=== PATIENT | female | born 1950 | race Caucasian/White ===

== ENCOUNTER 2017-04-15 12:22 | Inpatient (IN) | payer MEDICAID ==
[~2017-04-15] VITALS: Ht 162.5 cm; Wt 78.9 kg
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
[2017-04-15 12:34] VITALS: BP 154/66
[2017-04-15 12:57] LABS: BASO % 0.6 % (0.0-1.0); EOS # 0.1 10*3/uL (0.0-0.4); EOS % 1.5 % (1.0-4.0); HEMATOCRIT 35.8 % (37.0-47.0); HEMOGLOBIN 12.2 g/dl (12.0-16.0); LYMPH # 1.5 10*3/uL (1.3-4.4); LYMPH % 22.6 % (27.0-41.0); MEAN CELL VOLUME 93.2 fl (81.0-99.0); MEAN CORPUSCULAR HGB 31.8 pg (27.0-31.0); MEAN CORPUSCULAR HGB CONC 34.1 g/dl (33.0-37.0); MEAN PLATELET VOLUME 9.4 fl (9.6-12.3); MONO # 0.5 10*3/uL (0.1-1.0); MONO % 7.9 % (3.0-9.0); NEUT # 4.3 10*3/uL (2.3-7.9); NEUT % 67.1 % (47.0-73.0); PLATELET COUNT AUTOMATED 249 10*3/uL (130-400); RED BLOOD COUNT 3.84 10*6/uL (4.10-5.10); WHITE BLOOD COUNT 6.5 10*3/uL (4.8-10.8)
[2017-04-15] MEDS ORDERED: METOPROLOL25 MG PO (13:04)
[2017-04-15] MEDS ORDERED: CAPTOPRIL25 MG PO (13:04)
[2017-04-15] MEDS ORDERED: HYDROCHLOROTHIA25 M1 PO (13:06)
[2017-04-15] MEDS ORDERED: ATIVAN1 MG PO (13:06)
[2017-04-15] MEDS ORDERED: VISTARIL25 MG PO (13:06)
[2017-04-15] MEDS ORDERED: ZYPREXA5 M1 PO (13:07)
[2017-04-15] MEDS ORDERED: CYCLOBENZAPRINE10 MG PO (13:07)
[2017-04-15 13:08] LABS: PROTHROMBIN TIME 10.2 SECONDS (9.0-12.4)
[2017-04-15] MEDS ORDERED: SENNA8.6 MG PO (13:08)
[2017-04-15] MEDS ORDERED: CITALOPRAM20 MG PO (13:10)
[2017-04-15] MEDS ORDERED: XARELTO15 M1 PO (13:10)
[2017-04-15 13:15] LABS: ALBUMIN 3.7 gm/dl (3.1-4.5); ALKALINE PHOSPHATASE 63 U/L (45-117); BILIRUBIN, TOTAL 0.4 mg/dl (0.2-1.0); BUN 9 mg/dl (7-24); CARBON DIOXIDE 24 mmol/L (21-32); CHLORIDE 109 mmol/L (98-107); EST GLOM FILT AFRICAN AMERICAN > 60 ml/min; GLUCOSE 106 mg/dL (65-99); MAGNESIUM 2.1 mg/dL (1.5-2.1); POTASSIUM 3.8 mmol/L (3.5-5.1); SGOT/AST 8 IU/L (3-35); SGPT/ALT 17 U/L (12-78); SODIUM 146 mmol/L (136-145); TOTAL PROTEIN 7.2 gm/dL (6.4-8.2)
[2017-04-15 13:17] LABS: TROPONIN I < 0.015 ng/ml (<0.045)
[2017-04-15 14:40] VITALS: BP 147/80
[2017-04-15 16:00] VITALS: BP 119/77
[2017-04-15 18:14] LABS: CPK 42 U/L (26-192)
[2017-04-15 18:20] LABS: CKMB < 0.5 ng/ml (0.5-3.6)
[2017-04-15 20:00] VITALS: BP 119/73
[2017-04-16] VITALS: BP 131/77
[2017-04-16 00:54] LABS: CPK 43 U/L (26-192)
[2017-04-16 00:55] LABS: CKMB < 0.5 ng/ml (0.5-3.6)
[2017-04-16 06:13] LABS: BASO % 0.7 % (0.0-1.0); EOS # 0.2 10*3/uL (0.0-0.4); EOS % 3.3 % (1.0-4.0); HEMATOCRIT 32.8 % (37.0-47.0); HEMOGLOBIN 11.1 g/dl (12.0-16.0); LYMPH # 1.6 10*3/uL (1.3-4.4); LYMPH % 27.7 % (27.0-41.0); MEAN CORPUSCULAR HGB 31.8 pg (27.0-31.0); MEAN CORPUSCULAR HGB CONC 33.8 g/dl (33.0-37.0); MEAN PLATELET VOLUME 9.7 fl (9.6-12.3); MONO # 0.5 10*3/uL (0.1-1.0); MONO % 8.8 % (3.0-9.0); NEUT # 3.4 10*3/uL (2.3-7.9); NEUT % 59.3 % (47.0-73.0); PLATELET COUNT AUTOMATED 219 10*3/uL (130-400); RED BLOOD COUNT 3.49 10*6/uL (4.10-5.10); RED CELL DISTRI WIDTH 11.9 % (0-14.5); WHITE BLOOD COUNT 5.8 10*3/uL (4.8-10.8)
[2017-04-16 06:26] LABS: CPK 36 U/L (26-192)
[2017-04-16 06:43] LABS: CKMB < 0.5 ng/ml (0.5-3.6)
[2017-04-16 06:44] LABS: ALBUMIN 3.3 gm/dl (3.1-4.5); ALKALINE PHOSPHATASE 57 U/L (45-117); BILIRUBIN, TOTAL 0.4 mg/dl (0.2-1.0); BUN 9 mg/dl (7-24); CARBON DIOXIDE 27 mmol/L (21-32); CHLORIDE 108 mmol/L (98-107); CHOLESTEROL 182 mg/dL (<200); EST GLOM FILT AFRICAN AMERICAN > 60 ml/min; GLUCOSE 102 mg/dL (65-99); HDL CHOLESTEROL 44 mg/dl (40-60); LDL CHOLESTEROL 110 mg/dL (9-159); MAGNESIUM 2.2 mg/dL (1.5-2.1); POTASSIUM 3.8 mmol/L (3.5-5.1); SGOT/AST 9 IU/L (3-35); SGPT/ALT 16 U/L (12-78); SODIUM 144 mmol/L (136-145); TOTAL PROTEIN 6.4 gm/dL (6.4-8.2); TRIGLYCERIDES 138 mg/dl (<150); VLDL CHOLESTEROL 28 mg/dL (6-40)
[2017-04-16 06:49] LABS: THYROID STIM HORMONE (HS) 0.733 uIU/ml (0.358-4.75)
[2017-04-16 07:19] LABS: HEMOGLOBIN A1c 6.3 % (4.8-5.6)
[2017-04-16 07:29] LABS: FOLIC ACID 16.38 ng/mL (>5.38); VITAMIN D, 25-HYDROXY 13.2 ng/mL (30-100)
[2017-04-16 08:00] VITALS: BP 145/87
[2017-04-16 12:00] VITALS: BP 136/86
[2017-04-16 16:00] VITALS: BP 136/79
[2017-04-16 17:39] LABS: URINE AMPHETAMINES < 1000 (1000ng/ml); URINE BARBITURATES < 200 (200ng/ml); URINE COCAINE < 300 (300ng/ml)
[2017-04-16 20:00] VITALS: BP 136/79; BP 142/76
[2017-04-17] VITALS: BP 154/82
[2017-04-17 08:00] VITALS: BP 142/88
[2017-04-17 12:00] VITALS: BP 144/89
[2017-04-17 16:00] VITALS: BP 152/92
[2017-04-17] MEDS ORDERED: PANTOPRAZOLE SO40 MG PO (17:17)
[2017-04-17] MEDS ORDERED: D-1000 185 MG-11 TAB PO (17:17)
== END 2017-04-17 20:13 | disposition home or self-care (01) | DRG 880 ==
LOC: ED 12:22 → 4E 13:38 → EDHOLD 13:38 → 4E 13:48
PROVIDERS: Family Medicine; Internal Medicine; Nurse Practitioner Family
DX: F41.9 Anxiety disorder, unspecified (principal); E87.0 Hyperosmolality and hypernatremia; E44.0 Moderate protein-calorie malnutrition; F33.9 Major depressive disorder, recurrent, unspecified; I10 Essential (primary) hypertension; E55.9 Vitamin D deficiency, unspecified; E83.41 Hypermagnesemia; F20.9 Schizophrenia, unspecified; R03.0 Elevated blood-pressure reading, without diagnosis of hypertension; Z88.0 Allergy status to penicillin; Z88.2 Allergy status to sulfonamides; Z88.8 Allergy status to other drugs, medicaments and biological substances; Z82.49 Family history of ischemic heart disease and other diseases of the circulatory system; Z83.3 Family history of diabetes mellitus; Z84.89 Family history of other specified conditions; Z68.29 Body mass index [BMI] 29.0-29.9, adult

== ENCOUNTER 2017-07-18 20:27 | Inpatient (IN) | payer MEDICARE, MEDICAID ==
[~2017-07-18] VITALS: Ht 167.6 cm; Wt 86.2 kg
--- NOTE | ~2017-07-18 | DS ---
[place], [place] DISCHARGE SUMMARY NAME: SUKHWINDER MIRELES [facility] #: [id number] UNIT #: [id number] ROOM: 310 DOCTOR: GILBERTO DAIGLE MD BIRTHDATE: [birth year] DOS: 07/26/2017 CHIEF COMPLAINT: "I don't feel well. The pain is getting to me." HISTORY OF PRESENT ILLNESS: This is a 67-year-old white female with a longstanding history of schizoaffective disorder who presented to the Emergency Room at [facility] with multiple somatic complaints. She had been in and out of this and other local ERs complaining first chest pain with a negative workup and then subsequently with abdominal pain with a similar negative workup. She presents now having been noncompliant with her psychotropics for several weeks and reports that she is not sleeping or eating well. A friend who accompanied her to the Emergency Room was concerned that she is decompensating and slipping into a depression as well as having an increase in her psychotic symptoms. The friend reported that in the past when she has exhibited similar behaviors. She required hospitalization with readjustment of her medications to prevent her from getting deeper into depression and psychosis. She was admitted now to rule out organic factors, to stabilize on medication, ultimately returning to the least restrictive environment when psychiatrically stable. PAST MEDICAL HISTORY: Remarkable for a long history of schizoaffective disorder, hypertension, hyperlipidemia, vitamin D deficiency. She lists multiple drug allergies including LITHIUM, PENICILLIN, SULFA, PROZAC, ZOLOFT, DEPAKOTE, ALEVE, ASPIRIN and ALL ANTIMANIC AGENTS. SUMMARY OF HOSPITAL COURSE: The patient was admitted to the unit where her Lexapro was discontinued in lieu of Remeron 15 mg at bedtime. Navane 5 mg twice daily was utilized as an antipsychotic; however, after several days of the Navane, she complained of severe akathisia and tremors, so the Navane was discontinued and Vraylar 1.5 mg was added at bedtime. Remeron remained at 15 mg at bedtime with adequate results as far as improving sleep and appetite. Ativan was added at a dose of 0.5 mg 3 times daily and she utilized both Ativan and Vistaril p.r.n. throughout the day when the anxiety became too much for her. Ultimately, the Vraylar was increased to its maximum dose during this stay of 3 mg a day. The patient continued to exhibits somatic symptoms and did tend to be anxious and required a great deal of redirection. On the day of discharge, I had talked to her at length about participating in the [place] IOP program and she was uncertain if she wanted to follow through with this. Overall, she voiced positive improvement with the medication and denied significant side effects. She was discharged then on 07/26 to return home in [place]. MENTAL STATUS AT DISCHARGE: The patient is alert and oriented. Mood does seem to be trending towards euthymia. Affect is more appropriate. There are no symptoms of candi or hypomania. There are no overt auditory or visual hallucinations noted. Short, intermediate, and long-term memory are intact. FINAL DIAGNOSIS: Schizoaffective disorder. PLAN: All of her prescriptions have been E-scribed to [facility] in [place] except for the Ativan, which will be printed and sent with her upon discharge. [place], [place] DISCHARGE SUMMARY NAME: [facility]WINDER MIRELES [id number] UN[facility] #: [id number] ROOM: 310 DOCTOR: GILBERTO DAIGLE MD BIRTHDATE: [birth year] GILBERTO DAIGLE MD CM:HERMINIAARG 08 7 GILBERTO DAIGLE MD 07/26/17957 interface
--- NOTE | ~2017-07-18 | WRIGHTHP ---
[place], [place] PATIENT HISTORY AND PHYSICAL EXAM NAME: SUKHWINDER MIRELES [id number] UNIT #: [id number] ROOM: 310 DOCTOR: GILBERTO DAIGLE MD BIRTHDATE: [birth year] DOS: 07/19/2017 CHIEF COMPLAINT: "I don't feel well. This pain is getting to me." HISTORY OF PRESENT ILLNESS: This is a 67-year-old white female with a longstanding history of schizoaffective disorder who presented to the Emergency Room at [facility] with multiple somatic complaints. She has been in and out of this ER and local ER's complaining first of chest pain with a negative workup and then subsequently with abdominal pain with a similar negative workup. She presents now stating that she has been noncompliant with her psychotropics for several weeks now, has not been sleeping well or eating well. A friend, who accompanied her to the Emergency Room, was concerned that she is decompensating greatly and is slipping into a depression as well as psychotic symptoms. The friend reported that in the past when similar behaviors were surfaced, she required hospitalization and readjustment with her medications. She is admitted now to rule out organic factors, to stabilize on medication with the ultimate plan to return to at least restrictive environment when psychiatrically stable. PAST MEDICAL HISTORY: Remarkable for the long history of schizoaffective disorder, hypertension, hyperlipidemia, vitamin D deficiency. ALLERGIES: She also lists multiple drug allergies including LITHIUM, PENICILLIN, SULFA, PROZAC, ZOLOFT, DEPAKOTE, ALEVE, ASPIRIN and ALL ANTIMANIC AGENTS. MENTAL STATUS: She is alert and oriented. She does seem to be somewhat depressed. She is very somatically fixated. She endorses multiple neurovegetative symptoms. Her somatization borders on delusional quality and it is very difficult to support and redirect her. Memory for the most part is intact. DIAGNOSIS: Schizoaffective disorder. PLAN: I did discuss with her options regarding medications, and she reported that she would prefer utilizing older medications that have been available for sometime. Along this line, I will start Navane 5 mg twice daily as an antipsychotic. I will maintain her on Remeron 15 mg at bedtime. We will engage her in individual and han milieu activity with the ultimate plan to discharge to the least restrictive environment when stable. [place], [place] PATIENT HISTORY AND PHYSICAL EXAM NAME: SUKHWINDER MIRELES UNIT #: [id number] ROOM: 310 DOCTOR: GILBERTO DAIGLE MD BIRTHDATE: [birth year] GILBERTO DAIGLE MD CM:HISPHYS:PATIENT HISTORY AND PHYSICAL EXAMINATION 2 9 GILBERTO DAIGLE MD 07/19/17929 interface
--- NOTE | ~2017-07-18 | PR ---
[place], [place] PROGRESS NOTE NAME: SUKHWINDER MIRELES UNIT #: [id number] ROOM: 310 DOCTOR: GILBERTO DAIGLE MD BIRTHDATE: [birth year] DOS: 07/24/2017 CHIEF COMPLAINT: "I slept better, thank you. I feel a little better." SUMMARY OF THE VISIT: The patient was interviewed as she was resting quietly in bed. She awoke easily and sat at the edge of her bed. She reports that she did sleep better and feels better with the Vraylar in place rather than the Navane. She no longer has the tremors or the jittery feeling inside her. She notes no side effects with the Vraylar at this point in time and she actually smiled this morning and was more engaging. She did allow me to increase the dose tonight stating that she is feeling better with this and is hopeful that we finally found the right medication. MENTAL STATUS: She is alert and oriented to person, place and time. Mood does seem to be trending towards euthymia and affect is much more appropriate. There is no symptom suggestive of hypomania or candi. There are no acute auditory or visual hallucinations. No delusions were voiced. No paranoia seems present. Memory seems fully intact. PLAN: I will go ahead and increase the Vraylar from 1.5 mg at bedtime to 3 mg at bedtime and monitor for risk and benefit. Engage in individual and han milieu activity with the ultimate plan to return home when psychiatrically stable. GILBERTO DAIGLE MD CM:PNTRANS [phone] GILBERTO DAIGLE MD 07/24/17 1120 interface
--- NOTE | ~2017-07-18 | EKG ---
[place], [place] ELECTROCARDIOGRAM REPORT NAME: SUKHWINDER MIRELES UNIT #: [id number] ROOM: 310 DOCTOR: SRAVAN SHORT MD BIRTHDATE: [birth year] DOS: 07/18/2017 TIME: 2036 hours. Normal sinus rhythm at 96 beats per minute. The tracing is within normal limits. No previous tracing is available for comparison. SRAVAN SHORT MD Kaya Lucio NP CM:EKGRPT:ELECTROCARDIOGRAM REPORT [id number] SRAVAN SHORT MD
--- NOTE | ~2017-07-18 | PR ---
[place], [place] PROGRESS NOTE NAME: [facility]KHWINDER MIRELES [id number] UN[facility] #: [id number] ROOM: 310 DOCTOR: GILBERTO DAIGLE MD BIRTHDATE: [birth year] DOS: 07/25/2017 CHIEF COMPLAINT: "I slept better, but I feel a little tired this morning." SUMMARY OF THE VISIT: The patient was interviewed in the group therapy room. She did report that she slept better, but stated that she initiated sleep late because she stayed up too late. She woke up this morning feeling a little bit tired, but overall, feels much better on the Vraylar than she did on the Navane. The tremors that she had noted that were present with the Navane have dissipated and she is not noticing any side effects from the Vraylar. She herself endorses feeling better with this combination of medications and overall is improving enough to be able to start finalizing discharge plans. MENTAL STATUS: She is alert and oriented. Mood does seem to be strongly trending towards euthymia. Affect is much more appropriate. There are no symptoms suggestive of hypomania or candi. There are no overt auditory or visual hallucinations. No delusions are present. No paranoia is present. Short, intermediate and nursing home memory are fully intact. PLAN: At the present time, I will maintain her current psychotropic regimen, so that she may further adjust to the benefits and side effects of these medicines. We will continue to engage her in individual and han milieu activity. I did discuss with her the possibility of engaging in the [facility] post-discharge and will have Seismology Technical Officer further discuss this with her as a post-discharge option. We will plan to discharge when psychiatrically stable. GILBERTO DAIGLE MD CM:PNTRANS 0935 1507 GILBERTO DAIGLE MD 07/25/17 1506 interface
--- NOTE | ~2017-07-18 | PR ---
[place], [place] PROGRESS NOTE [facility]LES [id number] #: [id number] ROOM: 310 DOCTOR: GILBERTO DAIGLE MD BIRTHDATE: [birth year] DOS: 07/23/2017 CHIEF COMPLAINT: "I am so anxious, I am so depressed, nothing is working." SUMMARY OF THE VISIT: The patient was interviewed in the group therapy room. She reported to me that she feels overwhelmed. She is very stressed out. She still feels depressed. She is still feeling anxious and having panic attacks now, stating that she feels worse now than when she first came in. She feels that the Navane is causing her to have too many side effects and does not want to take it any longer. MENTAL STATUS: She is alert and oriented. Mood does seem to be depressed with anxious overtones. There does seem to be some mood lability noted as well. There are no overt auditory or visual hallucinations. No delusions, no paranoia. Memory seems intact. PLAN: I will go ahead and discontinue the Navane in lieu of Vraylar 1.5 mg at bedtime. I will order Ativan 0.5 mg t.i.d. straight to decrease her anxiety and attempt to stabilize her mood, engage in individual and han milieu activity, returning home when stable. GILBERTO DAIGLE MD CM:PNTRANS [phone] GILBERTO DAIGLE MD 07/23/17 1153 interface
[~2017-07-18 20:27] MED LIST: ATIVAN1 MG PO; CAPTOPRIL25 MG PO; CITALOPRAM20 MG PO; CYCLOBENZAPRINE10 MG PO; D-1000 185 MG-11 TAB PO; HYDROCHLOROTHIA25 M1 PO; METOPROLOL25 MG PO; PANTOPRAZOLE SO40 MG PO; SENNA8.6 MG PO; VISTARIL25 MG PO; XARELTO15 M1 PO; ZYPREXA5 M1 PO
[2017-07-18 20:53] LABS: BASO # 0.1 10*3/uL (0.0-0.1); BASO % 0.6 % (0.0-1.0); EOS # 0.1 10*3/uL (0.0-0.4); EOS % 1.1 % (1.0-4.0); HEMATOCRIT 36.3 % (37.0-47.0); HEMOGLOBIN 12.2 g/dl (12.0-16.0); MEAN CELL VOLUME 93.1 fl (81.0-99.0); MEAN CORPUSCULAR HGB 31.3 pg (27.0-31.0); MEAN CORPUSCULAR HGB CONC 33.6 g/dl (33.0-37.0); MEAN PLATELET VOLUME 10.1 fl (9.6-12.3); MONO # 0.6 10*3/uL (0.1-1.0); MONO % 7.7 % (3.0-9.0); NEUT # 5.4 10*3/uL (2.3-7.9); NEUT % 66.4 % (47.0-73.0); PLATELET COUNT AUTOMATED 357 10*3/uL (130-400); RED CELL DISTRI WIDTH 11.8 % (0-14.5); WHITE BLOOD COUNT 8.2 10*3/uL (4.8-10.8)
[2017-07-18 21:17] LABS: ALBUMIN 3.6 gm/dl (3.1-4.5); ALKALINE PHOSPHATASE 69 U/L (45-117); BUN 7 mg/dl (7-24); CHLORIDE 108 mmol/L (98-107); CREATININE 0.85 mg/dL (0.55-1.02); POTASSIUM 4.4 mmol/L (3.5-5.1); SGOT/AST 27 IU/L (3-35); SGPT/ALT 22 U/L (12-78); SODIUM 142 mmol/L (136-145); TOTAL PROTEIN 7.2 gm/dL (6.4-8.2)
[2017-07-18 21:19] LABS: TROPONIN I < 0.015 ng/ml (<0.045)
[2017-07-18 21:20] VITALS: BP 174/92
--- NOTE | 2017-07-18 21:30 | NUR ---
PT REFUSED MEDICATION
[2017-07-18 21:56] VITALS: BP 195/101
--- NOTE | 2017-07-18 21:56 | NUR ---
PT STATES SHE FEELS RELIEF AFTER GI COCKTAIL
[2017-07-18 22:20] LABS: BILIRUBIN NEGATIVE (NEGATIVE); BLOOD 1+ (NEGATIVE); CLARITY CLEAR (CLEAR); COLOR YELLOW (YELLOW); GLUCOSE NEGATIVE (NEGATIVE); KETONE NEGATIVE (NEGATIVE); LEUKO ESTERASE NEGATIVE (NEGATIVE); NITRITE NEGATIVE (NEGATIVE); UROBILINOGEN 0.2 E.U./dl (0.2-1.0)
[2017-07-18 22:25] LABS: ACETAMINOPHEN (TYLENOL) < 2.0 ug/ml (10-30); ETHYL ALCOHOL < 3.0 mg/dl (<3)
[2017-07-18 22:28] LABS: BACTERIA TRACE
[2017-07-18 22:31] LABS: URINE AMPHETAMINES < 1000 (1000ng/ml); URINE BARBITURATES < 200 (200ng/ml); URINE BENZODIAZEPINES < 200 (200ng/ml); URINE CANNABINOIDS (THC) < 50 (50ng/ml); URINE COCAINE < 300 (300ng/ml); URINE METHADONE < 300 (300ng/ml); URINE OPIATES < 300 (300ng/ml)
[2017-07-18 22:32] LABS: URINE PHENCYCLIDINE < 25 (25ng/ml)
[2017-07-18 23:07] VITALS: BP 194/103
[2017-07-18 23:45] VITALS: BP 144/79
--- NOTE | 2017-07-18 23:45 | NUR ---
SUKHWINDER MIRELES a 67 year old F admitted via wheel chair from the EMERGENCY ROOM as a voluntary admission. Arrived on unit at 2345. ALLERGIES: BENZOCAINE, LITHIUM, PCN, SULFAMETHOXAZOLE, SULFONAMIDE, LATEX, PROZAC, ZOLOFT, DEPAKOTE, ALEVE, ASA, ANY METAL BASED OR ASA MEDS, ANTIMANIC AGENTS. Vital signs are: 97.3-75-16 144/79. The client signed the following forms with stated understanding: Clothing List, Consent to Voluntary Admission and Hospitalization, Consent and Release Forms/Receipt of Rights, Acknowledgement of Advance Directive Information, Behavioral Health Consent Form, and Informed Consent of Medications. [facility] A search was conducted and hazardous articles were removed. Client was oriented to the unit. JOEY GR
[2017-07-19] VITALS: BP 144/79
[2017-07-19] MEDS ORDERED: LEXAPRO20 MG PO (00:32)
--- NOTE | 2017-07-19 01:16 | NUR ---
CALLED HOSPITALIST NUMBER [phone], SPOKE TO , INFORMED HIM OF BEING CONSULTED FOR MEDICAL MANAGEMENT AND THAT THE MED REC IS COMPLETED, STATED TO PLACE CONSULT UNDER . NO OTHER ORDERS RECIEVED.
--- NOTE | 2017-07-19 02:39 | NUR ---
RECIEVED PRN TYLENOL 650MG REQUESTED FOR C/O ABDOMINAL PAIN WITH A RATING OF 8/10, PATIENT STATES IT IS A "DULL PAIN". LAST BM PER PATIENT WAS 07/18/17. BOWEL SOUNDS X4, ABDOMEN SOFT, NON DISTENDED. NO OTHER PHYSICAL COMPLAINTS VOICED. NO SIGNS OR SYMPTOMS OF DISTRESS NOTED.
--- NOTE | 2017-07-19 04:44 | NUR ---
PATIENT RECIEVED PRN MAALOX 30ML REQUESTED FOR "STOMACH PAIN" WITH A CONTINUED RATING OF 8/10. PRN TYLENOL RECIEVED AT 0239 NOT EFFECTIVE AT THIS TIME. NO OTHER PHYSICAL COMPLAINTS VOICED. NO SIGNS OR SYMPTOMS OF DISTRESS NOTED.
[2017-07-19 05:21] VITALS: BP 186/96
--- NOTE | 2017-07-19 05:21 | NUR ---
CALLED RESIDENT NUMBER [phone], SPOKE WITH DR. HIDALGO, INFORMED HIM OF PATIENTS C/O ABDOMINAL PAIN THAT HAS CONTINUED FROM OUR ER. ALSO UPDATED HIM ON PRN MEDICATIONS RECIEVED THIS SHIFT ARE NOT EFFECTIVE AT THIS TIME. ALSO THAT PATIENT REQUESTED FOR HER BP TO BE CHECK AND IT WAS 186/96 AND THAT PATIENT STATED "I DID NOT TAKE MY BP MEDICATIONS YESTERDAY". DR. HIDALGO STATED TO CONTINUE HER CAPTOPRIL 25MG BID, AND ALSO 1X DOSE OF NORCO 5/325. NO OTHER ORDERS RECIEVED AT THIS TIME.
--- NOTE | 2017-07-19 05:34 | NUR ---
ON UNIT TO SEE PATIENT AT THIS TIME. UPDATE PROVIDED.
--- NOTE | 2017-07-19 07:00 | NUR ---
PATIENT OBSERVED ON Q 15 MIN SAFETY CHECKS TO HAVE TO HAVE SLEPT APPROX 0 HOURS THROUGHOUT THE NIGHT WITH MULTIPLE AWAKENINGS TO USE THE CALL LIGHT FOR VARIOUS WANTS AND DEMANDS. NOT EASILY REDIRECTED BY STAFF, ASSISTANCE AND EMOTIONAL SUPPORT PROVIDED. REFUSED AM BLOOD DRAWS AT THIS TIME AFTER EDUCATION, LAB TO RETURN AT 0900 TO RETRY. NO SIGNS OR SYMPTOMS OF DISTRESS NOTED.
--- NOTE | 2017-07-19 08:02 | NUR ---
24 HOUR CHART CHECK COMPLETED.
[2017-07-19 09:11] VITALS: BP 141/96
[2017-07-19 09:30] LABS: CHOLESTEROL 213 mg/dL (<200); HDL CHOLESTEROL 46 mg/dl (40-60); LDL CHOLESTEROL 136 mg/dL (9-159); TRIGLYCERIDES 157 mg/dl (<150); VLDL CHOLESTEROL 31 mg/dL (6-40)
--- NOTE | 2017-07-19 10:29 | NUR ---
PATIENT CONTINUES TO C/O SOB AND MIDSTERNAL CHEST PAIN. PT WAS IN GROUP THEN REMOVED SELF AND IS NOW LAYING IN BED. VITALS STABLE WITH HRR. GAIT IS SLOW AND STEADY. SKIN IS WARM AND DRY. NO OBVIOUS VISIBLE RESPIRATORY DISTRESS NOTED. PATIENT CONTINUES TO LAY IN BED TURNING DOCUMENTATION CLERK LIGHT FREQUENTLY AND REQUESTING TO "TALK." NOTIFIED WITH NNO. STATES TO CONTINUE TO MONITOR PATIENT NEEDED.
[2017-07-19 10:30] LABS: VITAMIN D, 25-HYDROXY 14.8 ng/mL (30-100)
--- NOTE | 2017-07-19 10:35 | NUR ---
PATIENT CAME BACK TO GROUP ROOM FOR APPROXIMATELY 2 MINUTES THEN RETURNED TO HER ROOM. CALLED AT THIS TIME AND STATES HE IS ENTERING NEW ORDERS.
--- NOTE | 2017-07-19 12:02 | NUR ---
AT BEDSIDE TO ASSESS PATIENT. MADE AWARE PT REFUSED GI COCTAIL AND THAT PT STATES "I'M ALLERGIC TO ALL THAT." PT REQUESTING "LIQUID ATIVAN THROUGH THIS IV." IV REMOVED PER , ONE TO OPNE COMPLETED R/T ANXIETY WITH MINIMAL EFFECT. PT STATES "NOTHING WORKS." LAYING IN BED WITH EYES CLOSED AT THIS TIME. RESPIRATIONS EASY AND EVEN. NO ACUTE DISTRESS NOTED.
--- NOTE | 2017-07-19 12:37 | NUR ---
PHYSICAL THERAPY PAtient evaluated on three, full evaluation to follow. PAtient (I) with mobility, d/c PT after evaluation. Thank you for this referral. Mariana Umana,PT
--- NOTE | 2017-07-19 12:49 | NUR ---
Reminiscing Patient did attend group this morning but within 10 mins patient stated she needed to go back to her room due to chest pain not going away. Questioned patient if she needed a nurse, if this just started etc. Patient stated did not need a nurse and its been this way for months. AT check with staff about this situation and they are aware and to let her go back to her room
--- NOTE | 2017-07-19 12:52 | NUR ---
Occupational Therapy evaluation completed [facility] with full eval to follow. Precautions include 3N, anxiety. Recommend return to apartment w/ boyfriend and at plof. No further OT indicated at this time. Thank you for this referral. Yoselin Perez OTR/L
--- NOTE | 2017-07-19 15:23 | NUR ---
PRN TYLENOL GIVEN PER PT REQUEST FOR 10/10 MID STERNAL CHEST PAIN AT 1448 . PRN TYLENOL EFFECTIVE AT THIS TIME, PT RESTING IN BED WITH EYES CLOSED. RESPIRATIONS EASY AND EVEN. NO ACUTE DISTRESS NOTED.
--- NOTE | 2017-07-19 15:38 | NUR ---
Painting/Socializing Patient did attend afternoon group as well as participate for 10 mins or so. Patient began painting but when asked where she was going when she got up to leave patient stated for her tylenol but would get it later.Patient then got up to leave a few minutes later to get tylenol and went to her room. Patient then came back and said she did all she could do and left again
--- NOTE | 2017-07-19 16:30 | NUR ---
PT REQUESTED HER BP TAKEN AT THIS TIME. BP 192/102, HR 95. NOTIFIED, STATES TO GIVE 1800 LISINOPRIL EARLY.
--- NOTE | 2017-07-19 16:32 | NUR ---
PT C/O FEELING LIKE HER BP IS ELEVATED. VITALS TAKEN AND FOLLOWS: BP 192/100, HR 95, SPO2 98% RA, RR 20. NOTIFIED AND STATES TO GIVE LISINOPRIL NOW AND RECHECK BP IN 1 HOUR.
--- NOTE | 2017-07-19 16:35 | NUR ---
LISINOPRIL GIVEN AT THIS TIME. PT LAYING IN BED AT THIS TIME C/O "NOT FEELING GOOD." RESPIRATIONS EASY AND EVEN. WILL CONTINUE TO MONITOR.
--- NOTE | 2017-07-19 16:52 | NUR ---
PT WAS TOO ANXIOUS AND WORRIED ABOUT CHEST PAIN TO CONCENTRATE TO COMPLETE PYSCHOSOCIAL ASSESSMENT.
--- NOTE | 2017-07-19 16:52 | NUR ---
PT IS ALERT AND ORIENTED X4. MAKES NEEDS AND WANTS KNOWN TO STAFF. MOOD IS ANXIOUS AND LABILE THIS SHIFT. MULTIPLE ONE ON ONE'S COMPLETED WITH PATIENT FROM MS, AT, AND RN'S WITH MINIMAL EFFECT FOR SHORT PERIODS OF TIMES. REMAINS PREOCCUPIED WITH MEDICATIONS AND SOMATIC COMPLAINTS. AND AND ALL AWARE OF PHYSICAL AND PSYCHOLOGICAL COMPLAINTS. DENIES ANY SI/HI. DENIES ANY HALLUCINATIONS AND NONE ARE NOTED. DISRUPTIVE AND INTRUSIVE BEHAVIORS NOTED THROUGHOUT THE DAY, REDIRECTION EFFECTIVE FOR ONLY SHORT PERIODS OF TIME. MEDICATION COMPLIANT WITHOUT DIFFICULTY. WILL CONTINUE Q15 MIN OBSERVATION CHECKS PER ORDERS. WILL CONTINUE TO ENCOURAGE PT TO ATTEND AND PARTICIPATE IN GROUP THERAPY.
--- NOTE | 2017-07-19 17:35 | NUR ---
BP 186/93, HR 86 AT THIS TIME. NOTIFIED, STATES TO GIVE PRN ATIVAN.
--- NOTE | 2017-07-19 17:43 | NUR ---
PRN ATIVAN GIVEN AT THIS TIME. WILL CONTINUE TO MONITOR.
--- NOTE | 2017-07-19 18:08 | NUR ---
APPETITE POOR THIS SHIFT, TAKING FLUIDS WELL.
--- NOTE | 2017-07-19 18:59 | NUR ---
MADE AWARE PT BP IS 177/86, HR 85 AND THAT PT IS SLEEPING AT THIS TIME. NEW V/O WRITTEN DOWN AND READ BACK, WITNESSED BY 2ND RN, GRANT AGUDELO.
[2017-07-19 20:00] VITALS: BP 178/86
--- NOTE | 2017-07-20 06:59 | NUR ---
PT SLEPT THOUGHOUT THE NIGHT 8 HOURS PLUS. PT BEGAN SHIFT VERY SUSPICIOUS, PREOCCUPIED WITH MEDICATION AND SOMATIC COMPLAINTS. MEDICATION COMPLIANT WITH MUCH COAXING. CONTINUE TO REORIENT AND REDIRECT, CONTINUE TO ALLOW PATIENT TO VOICE CONCERNS AND PROVIDE EMOTIONAL SUPPORT. REPORT BUILT WITH PT AWOKE LESS SUSPICIOUS OF STAFF. VOICING NO SOMATIC COMPLAINTS THIS AM
[2017-07-20 07:51] VITALS: BP 137/85
--- NOTE | 2017-07-20 09:27 | NUR ---
SW completed Psychosocial Assessment with Pt. Pt stays mostly at her Boyfriend's apartment but still has her own apartment. SW and Pt discussed a Partial Hsoptalization Program in [place]. Pt stated that she is not a mornig person. Sw stated that Pt could go a half a day in the afternoon. Pt deneen consider this.
--- NOTE | 2017-07-20 11:20 | NUR ---
NEGRITA ARREDONDO AT BEDSIDE TO ASSESS PT. NNO AT THIS TIME.
--- NOTE | 2017-07-20 11:23 | NUR ---
Painting,Decorating/Socializing This project was started yesterday in group and this patient did not stay for the entire group. Patient stayed the entire time for group this morning,working on her Dynamighty and socializing. Patient was very friendly and helpful to other patients and this staff person. During group there was no mention of pain of any kind.
--- NOTE | 2017-07-20 15:46 | NUR ---
Roxane Holder Patient did attend group and participated instead in positive thinking/Positive traits. Patient discussed her feelings and what she saw in herself. We also discussed coping skills and deep breathing exercises when there is anxiety.
[2017-07-20 20:00] VITALS: BP 150/88
--- NOTE | 2017-07-20 23:15 | NUR ---
PT VOICING MID STERNAL PRESSURE AND FEELING OF ANXIETY. MED CHANGES DISCUSSED WITH PT BP 150/88 MANUAL. PRN ATIVAN ANDMINISTERED PO
--- NOTE | 2017-07-21 00:05 | NUR ---
PT RESTING QUIETLY IN BED AT THIS TIME PRN ATIVAN EFFECTIVE
--- NOTE | 2017-07-21 04:44 | NUR ---
24 HR chart check completed.
--- NOTE | 2017-07-21 06:09 | NUR ---
PT SLEPT 6 HOURS UNINTURRUPTED THROUGHOUT THE NIGHT. PT CONTINUES WITH SOMATIC COMPLAINTS AND INCREASED ANXIETY. 1-1 PROVIDED AND DISCUSSED MED CHANGES AND COPING STRATEGIES. PT DEVELOPING IMPROVED REPORT WITH STAFF, DECREASED SOMATIC COMPLAINTS AND FIXATION ON MEDS THAN ON PREVIOUS SHIFT. INCREASED ANXIETY THIS EVENING DUE TO HIGH LEVEL OF VOLUME, ACTIVITY AND BEHAVIOR OF PEERS ON UNIT THIS EVENING. PT INCREASING IN PARTICIPATION IN GROUPS AND ALSO SOCIALIZATION WITH PEERS. WILL CONTINUE POC AND REINFORCEMENT OF COPING STRATEGIES.
[2017-07-21 07:53] VITALS: BP 135/89
--- NOTE | 2017-07-21 14:08 | NUR ---
PATIENT COMPLAINED OF MIDDLE BACK PAIN, RATING 8/10, PRN TYLENOL 6502MG GIVEN AT THIS TIME.
--- NOTE | 2017-07-21 15:08 | NUR ---
PATIENT STATED THAT THE TYLENOL WAS EFFECTIVE.
[2017-07-21 20:17] VITALS: BP 150/86
--- NOTE | 2017-07-22 04:27 | NUR ---
24 HR chart check completed.
--- NOTE | 2017-07-22 06:44 | NUR ---
PT CONTINUES WITH SOMATIC COMPLAINTS REQUESTING "A PAIN SHOT". PT INFORMED THAT SHE COULD HAVE PRN FLEXARIL BUT NOT SHOT WAS AVAILABLE. PT AWAOKE VOICING COMPLAINTS OF SHORTNESS OF BREATH. SPO2 98% ON ROOM AIR. PT PROVIDED 1-1 AND REINFORCED DEEP BREATHING EXERCISES TO REDUCE ANXIETY. PT REPORTS SOME RELIEF. SLEPT 8 HOURS WITH FEW INTURRUPTIONS.
[2017-07-22 08:01] VITALS: BP 157/84
--- NOTE | 2017-07-22 10:40 | NUR ---
PT REPORTS FEELING SIGNIFICANTLY MORE ANXIOUS THAN SHE HAS BEEN FEELING. SHE REQUESTED TO CHECK HER BLOODPRESSURE. MANUAL BLOOD PRESSURE READS 182/98 AND RADIAL PULSE OF 88.
--- NOTE | 2017-07-22 10:44 | NUR ---
VISTARIL AND HYDRALAZINE GIVEN ORDERED FOR BLOOD PRESSURE AND ANXIOUS SYMPTOMS.
--- NOTE | 2017-07-22 11:00 | NUR ---
DR. ALDRICH MADE AWARE OF PATIENT'S ELEVATED BLOOD PRESSURE AND THE ADMINISTRATION OF HYDRALAZINE 25MG AT 1041. HE REQUESTED TO RECHECK BLOOD PRESSURE IN ONE HOUR.
--- NOTE | 2017-07-22 12:04 | NUR ---
DR. ALDRICH MADE AWARE VIA TELEPHONE THAT PATIENT'S MANUAL BLOOD PRESSURE HAS INCREASED AND IS NOW READING 218/120 AND HER RADIAL PULSE IS 80. HE STATES THAT HE WILL SPEAK WITH DR. BOYD REGARDING NEW ORDERS.
--- NOTE | 2017-07-22 12:39 | NUR ---
PT IS SHAKEY, COMPLAINING OF ANXIOUSNESS, SHORTNESS OF BREATH AND PAIN IN MID BACK. DR. ALDRICH MADE AWARE OF ALL PATIENT'S COMPLAINTS AND THAT HER MANUAL BLOOD PRESSURE IS 118/120 AND A PULSE OF 94. PT'S PULSE OX IS 98% ON RA. DR. ALDRICH STATES THAT HE WILL PUT AN ORDER IN FOR ANOTHER DOSE OF HYDRALAZINE. AWAITING ORDER.
--- NOTE | 2017-07-22 13:15 | NUR ---
PT EDUCATED ON ZANAFLEX. PT STATED "I DON'T KNOW IF THIS WILL HELP, I JUST WANT TO ". DR. BOYD HERE TO SEE PATIENT.
--- NOTE | 2017-07-22 13:30 | NUR ---
SURESH ELI MADE AWARE OF PATIENT'S BLOOD PRESSURE READINGS AND SYMPTOMS. SHE WAS ALSO MADE AWARE THAT DR. BOYD STATED THAT HE BELIEVES THAT THE BLOOD PRESSURE AND SYMPTOMS ARE RELATED TO HER ANXIETY. SURESH AGREED AND ORDERED TO GIVE PATIENT HER PRN THORAZINE.
--- NOTE | 2017-07-22 13:44 | NUR ---
THORAZINE GIVEN ORDERED FOR ANXIOUS SYMPTOMS.
--- NOTE | 2017-07-22 15:04 | NUR ---
PT CONTINUES TO REPORT THAT SHE FEELS ANXIOUS, SHORT OF BREATH AND SHAKEY. PT WAS ENCOURAGED TO USE DEEP BREATHING EXERCISES. PT IS NOT RECEPTIVE TO LEARNING NEW COPING SKILLS. PT ISOLATIVE AND WITHDRAWN IN ROOM. PT ENCOURAGED TO COME OUT OF ROOM FREQUENTLY BUT PT REFUSED. PT USES CALL MACK FREQUENTLY TO MAKE STAFF AWARE OF ANXIOUS SYMPTOMS. MUCH ENCOURAGEMENT WAS NEEDED TO GET PATIENT TO LEAVE HER ROOM IN HOPES THAT SHE WILL ENGAGE IN DISTRACTION TECHNIQUES. PT IS NOW IN FRONT OF NURSES STATION SO THAT NURSES CAN WATCH PATIENT CLOSELY.
--- NOTE | 2017-07-22 15:11 | NUR ---
THORAZINE INEFFECTIVE.
--- NOTE | 2017-07-22 15:15 | NUR ---
DR. DOMINGUEZ MADE AWARE OF PATIENT'S 'S REQUEST FOR A TOPICAL CREAM TO BE USED FOR ITCHY SYMPTOMS RELATED TO HIS PSORIASIS AND HER REQUEST THAT IT BE A CREAM AND NOT MEDICATION TO REDUCE THE RISK FOR THE PARADOXAL EFFECT OF PO MEDICATION. SHE STATES THAT PATIENT IS SENSITIVE TO MANY PO MEDICATIONS AND IN THE PAST HAS CAUSED PATIENT TO BECOME RESLTESS AND ANXIOUS. HE WAS ALSO MADE AWARE THAT HIS BROUGHT IN PATIENT'S HUMIRA INJECTION FROM HOME WHICH IS DUE ON THE OF THIS MONTH AND NEEDS TO BE ORDERED.
--- NOTE | 2017-07-22 15:52 | NUR ---
Kaya REES made aware of patient's increased complaints and overt signs of tremors and anxiety. Kaya ordered Ativan 1mg Q8H PRN with a plan to titrate patient off of Ativan.
--- NOTE | 2017-07-22 16:08 | NUR ---
PT EDUCATED ON ATIVAN AND THE PLAN TO TITRATE HER OFF OF THE MEDICATION. ATIVAN GIVEN PRN ORDERED FOR ANXIETY.
--- NOTE | 2017-07-22 18:07 | NUR ---
ATIVAN EFFECTIVE. PT IS SIGNIFICANTLY LESS ANXIOUS.
--- NOTE | 2017-07-22 18:36 | NUR ---
PT APPROACHED DESK REQUESTING MEDICATION FOR PAIN. PT WAS EDUCATED THAT SHE WAS STARTED ON ZANAFLEX FOR HER PAIN AND IT IS DUE TONIGHT BEFORE BED.
[2017-07-22 20:41] VITALS: BP 125/76
--- NOTE | 2017-07-22 21:09 | NUR ---
ISOLATIVE TO ROOM. REFUSED THIOTHIXENE. STATES SHE WANTS HER ATIVAN NOT NOT THESE NEW DRUGS. STATES SHE IS BEING TREATED "LIKE A PATSY PIG" FOR MEDICATION EXPERIMENTATION. DISCUSSED REASONS SHE IS HERE AND THE REASON FOR EACH MEDICATION. REBUFFED EXPLAINATIONS. EMOTIONAL SUPPORT PROVIDED
--- NOTE | 2017-07-22 22:30 | NUR ---
REFUSES ORAL CARE. PROBLEM 1-SCHIZOAFFECTIVE--NONCOMPLIANCE WITH MEDICATION--SOMATIC I- EDUCATE ON ALL MEDICATIONS GIVEN. TEACH COPING TECHNIQUES FOR ANXIETY, KEEP INTERACTIVE WITH PEERS, ENCOURAGE ACTIVITY TO PREVENT BOREDOM P- BE MEDICATION COMPLIANT, USE LEARNED COPING SKILLS WHEN FEELING ANXIOUS OR OVERWHELMED, BE INTERACTIVE IN APPROPRIATE GROUPS ONCE DISCHARGED
--- NOTE | 2017-07-23 04:58 | NUR ---
24 HR chart check completed.
--- NOTE | 2017-07-23 06:43 | NUR ---
AWAKENED EASILY FOR MEDICATION. STATES SHE SLEPT WELL LAST NIGHT
[2017-07-23 08:03] VITALS: BP 148/78
--- NOTE | 2017-07-23 09:25 | NUR ---
PATIENT TALKING WITH DOCTOR AND EXPRESSED TO DOCTOR ON HER INCREASED ANXIETY. PRN ATIVAN 1MG GIVEN PO AT THIS TIME FOR VOICING HAVING ANXIETY.
--- NOTE | 2017-07-23 10:25 | NUR ---
PATIENT STATES SHE "FEELS A LITTLE BETTER" PRN ATIVAN EFFECTICE.
--- NOTE | 2017-07-23 13:04 | NUR ---
Socializing This is sunday with new patients. I like to talk to patients and find out about them such as likes, dislikes, pets what they enjoy etc... Patient did attend group this morning. Patient insisted on sitting in quiet room waiting to speak with the Dr and nurse. patient did agree to come to group after meeting, so patient joined toward the end of group
--- NOTE | 2017-07-23 14:14 | NUR ---
PATIENT IS ALERT AND ORIENT TO PERSON, PLACE AND TIME, ABLE TO VOICE NEEDS. RESPIRATIONS ARE EASY, NON-LABORED. MOOD IS ANXIOUS AT TIMES AND STABLE. THOUGHT PROCESS IS ORGANIZED AND GOAL DIRECTED. DENIES ANY HALLUCINAITONS, DELUSIONS OR HI/SI. DENIES ANY PAIN. PARTICIPATES IN GROUPS, INTERACTS WITH STAFF AND OTHER PATIENTS. APPETITE IS GOOD WITH ADEQUATE FLUIDS, CONTINENT OF BOWEL AND BLADDER. Q 15 MINUTE SAFETY CHECKS MAINTAINED.
[2017-07-23 20:00] VITALS: BP 131/82
--- NOTE | 2017-07-23 23:17 | NUR ---
CAME TO DININGROOM AND INTERACTED DURING SNACK. MEDICATION COMPLIANT. ATE SNACK. TYLENOL ONE TIME DOSE ORDRED BY DR GARRIDO GIVEN AND EXPLAINED WHY IT WAS ORDERED TO CLIENT
--- NOTE | 2017-07-24 06:13 | NUR ---
24 HR chart check completed.
--- NOTE | 2017-07-24 06:13 | NUR ---
SLEPT WELL PAST 2130PM
--- NOTE | 2017-07-24 07:46 | NUR ---
AIDEE this is a [employer] game that helps with thinking,and socializing. Patient did attend group as well as participated. Patient was very quiet and only spoke rarely but did speak when someone spoke to her and also followed along very well. Patient stated she was just tired but she wanted to plau AIDEE
[2017-07-24 08:46] VITALS: BP 138/80
--- NOTE | 2017-07-24 13:46 | NUR ---
PT IS ALERT AND ORIENTED TO PERSON, PLACE, TIME AND SITUATION. MEMORY APPEARS INTACT. RESPIRATIONS EASY ON ROOM AIR. MOOD IS DEPRESSED WITH ANXIOUS OVERTONES. SPEECH IS WNL AND COHERENT, ABLE TO MAKE NEEDS KNOWN TO STAFF WITHOUT DIFFICULTY. PT DENIES HALLUCINATIONS, NO RESPONSE TO INTERNAL STIMULI NOTED. PT DENIES SI/HI. MEDICATION COMPLIANT WITHOUT DIFFICULTY. PT PREOCCUPIED WITH ATIVAN; CAME TO THIS NURSE PRIOR TO 1PM DOSE AND STATES "DR. DAIGLE TOLD ME TO COME TO YOU THROUGHOUT THE DAY IF I AM FEELING ANXIOUS, WELL, I AM, I FEEL ANXIOUS. I NEED MY ATIVAN." NO OUTWARD S/S OF ANXIETY NOTED, PT CALM, IN CONTROL OF BEHAVIOR, HAD JUST ENDED PLEASANT VISIT WITH SON, FARZAD. PT WAS GIVEN SCHEDULED ATIVAN AT THIS TIME ORDERED BY DR. DAIGLE. PT
--- NOTE | 2017-07-24 15:51 | NUR ---
Exercise/Trivia-Morning group BINGO-Afternoon group Morning group of exercise helps patients stay active and joints mobile,Trivia helps with socialization, thinking and focusing. Afternoon group of BINGO helps with socialization, thinking,focusing and self esteem. This patient attended both groups. Patient acts as if she just woke up,tired. Reji was active in all areas of group today and especially liked it when she was congratulated on knowing the trivia answers. Patient is very social with other in patients and congratulates and encourages them. During BINGO patient doesnt speek much she is very focused on her cards
--- NOTE | 2017-07-24 16:19 | NUR ---
DR. LINK AND DR. GILLILAND ON UNIT TO SEE PT AT THIS TIME.
--- NOTE | 2017-07-24 18:33 | NUR ---
SHIFT CHART CHECK COMPLETED.
[2017-07-24 20:40] VITALS: BP 111/68
[2017-07-24 21:26] VITALS: BP 138/88
--- NOTE | 2017-07-24 23:23 | NUR ---
PATIENT IS ALERT AND ORIENTED X3, MEMORY INTACT. MOOD IS DEPRESSED. DURING 1:1 PATIENT STATED "YEAH IM STILL DEPRESSED, FEEL SAD AND LONELY". PATIENT ALSO STATED "MY BOYFRIEND IS SUPPORTIVE SOMETIMES BUT THERE IS ALOT GOING ON AT OUR APARTMENT COMPLEX AND ITS STRESSFUL". PATIENT PROVIDED WITH EMOTIONAL SUPPORT. PATIENT ALSO INFORMED THAT IF THOUGHTS ARISE TO HARM SELF TO NOTIFY STAFF. PATIENT CONTRACTED FOR SAFETY. NO HALLUCINATIONS/DELUSIONS NOTED. MEDICATION COMPLIANT WITHOUT DIFFICULTY AFTER REVIEW. NO PHYSICAL COMPLAINTS VOICED. PATIENT CURRENTLY IN BED WITH EYES CLOSED, RESPIRATIONS EASY AND REGULAR, NO SIGNS OR SYMPTOMS OF DISTRESS NOTED. REFER TO [facility] FLOWSHEET FOR SPECIFIC MONITORING.
--- NOTE | 2017-07-25 03:25 | NUR ---
24 HOUR CHART CHECK COMPLETED.
--- NOTE | 2017-07-25 05:24 | NUR ---
PATIENT OBSERVED ON Q 15 MIN CHECKS TO HAVE SLEPT QUIETLY THROUGHOUT THE NIGHT WITH NO AWAKENINGS OR SIGNS AND SYMPTOMS OF DISTRESS NOTED.
[2017-07-25 08:13] VITALS: BP 136/79
--- NOTE | 2017-07-25 10:37 | NUR ---
PATIENT REPORTS HAVING DIARRHEA AND FEELING ANXIOUS, PRN ATIVAN 1MG PO GIVEN AT THIS TIME.
--- NOTE | 2017-07-25 11:30 | NUR ---
PATIENT IN DINNING ROOM, ASKED ABOUT ANXIETY, PATIENT STATED SHE FEELS BETTER. PRN ATIVAN EFFECTIVE.
--- NOTE | 2017-07-25 14:45 | NUR ---
PATIENT IS ALERT AND ORIENT TO PERSON, PLACE AND TIME WITH SLOW THOUGHT PROCESS. ABLE TO VOICE NEEDS. MOOD IS DEPRESSED AND ANXIOUS. GOAL DIRECTED AND ORGANIZED. DENIES ANY HALLUCINATIONS, DELUSIONS, HI/SI OR PAIN/DISCOMFORT. INTERACTIVE WITH OTHER PATIENTS AND STAFF. PARTICIPATES IN GROUP SESSIONS. INDEPENDANT WITH ACTIVITIES OF DAILY LIVING WITH VERBAL CUEING NEEDED. GOOD MEAL INTAKES WITH ADEQUATE FLUIDS. CONTINENT OF BOWEL AND BLADDER. Q 15 MINUTE SAFETY CHECKS MAINTAINED. MEDICATION COMPLIANT.
--- NOTE | 2017-07-25 15:26 | NUR ---
Exercise/letter to yourself-Morning group BINGO-Afternoon group Morning group of exercise helps the patient stay active and gets their joints mobile/The letter was to help patient to set goals and to with coping skills self esteem and creativity (decorating the card). BINGO in the afternoon group helps with selfesteem, focusing, socialization and team work. Patient did attend and participate in morning group. Patient had a hard time focusing because she was not feeling well and needed to leave the room several times. Patient was able to focus intermediatly on her goal and finish what she wanted to say. Patient requested letter be sent to her after she leaves here (envelope is sealed before giving to me). We talked of seasons with fall coming and what everyones favorite season it. Patient stated she really enjoyed this project. Patient did not attend afternoon group. Patient was asleep and was very groggy when trying to wake her. Patient stated it was her meds making her tired and wanted to sleep
[2017-07-25 20:07] VITALS: BP 118/76
--- NOTE | 2017-07-25 22:59 | NUR ---
PATIENT IS ALERT AND ORIENTED X3, MOOD IS DEPRESSED. DURING 1:1 PATIENT STATED "I JUST FEEL SAD TODAY BECAUSE I DIDNT THINK I WAS GOING TO BE HERE THIS LONG, IM READY TO GO HOME". PATIENT PROVIDED WITH EMOTIONAL SUPPORT. PATIENT DENIES FEELINGS OF SUICIDAL IDEATIONS AND HALLUCINATIONS. NO NOTED RESPONDING TO INTERNAL STIMULI. MEDICATION COMPLIANT WITHOUT DIFFICULTY AFTER REVIEW. NO PHYSICAL COMPLAINTS VOICED. PATIENT CURRENTLY IN BED WITH EYES CLOSED. RESPIRATIONS EASY AND REGULAR. NO SIGNS OR SYMPTOMS OF DISTRESS NOTED. REFER TO [facility] FLOWSHEET FOR SPECIFIC MONITORING.
--- NOTE | 2017-07-26 03:02 | NUR ---
24 HOUR CHART CHECK COMPLETED.
--- NOTE | 2017-07-26 05:45 | NUR ---
PATIENT OBSERVED ON Q 15 MIN CHECKS TO HAVE SLEPT QUIETLY THROUGHOUT THE NIGHT WITH NO AWAKENINGS OR SIGNS AND SYMPTOMS OF DISTRESS NOTED.
[2017-07-26 07:54] VITALS: BP 143/81
[2017-07-26] MEDS ORDERED: LORAZEPAM0.5 MG PO (07:54)
[2017-07-26] MEDS ORDERED: MIRTAZAPINE15 M2 PO (07:54)
[2017-07-26] MEDS ORDERED: ATARAX,VISTARIL50 MG PO (07:54)
[2017-07-26] MEDS ORDERED: VRAYLAR3 MG PO (07:54)
[2017-07-26] MEDS ORDERED: Vitamin D PO (07:54)
[2017-07-26] MEDS ORDERED: TIZANIDINE HCL2 MG PO (07:54)
--- NOTE | 2017-07-26 09:00 | NUR ---
DR. DAIGLE MADE AWARE PT HAS BOTTLE OF ATIVAN 1MG IN PHARMACY TO BE SENT HOME WITH PT, DR. DAIGLE STATES OK TO SEND ATIVAN HOME WITH PT AND PT MAY ATIVAN PREVIOUSLY PRESCRIBED, DR. DAIGLE VOIDED SCRIPT FOR ATIVAN 0.5MG TID ROUTINE.
--- NOTE | 2017-07-26 09:52 | NUR ---
CALLED HOSPITALIST CELL NUMBER 1, SPOKE TO , MADE AWARE PT TO BE DISCHARGED TO HOME AROUND 1300 TODAY.
[2017-07-26] MEDS ORDERED: ATORVASTATIN CA20 M1 PO (10:06)
[2017-07-26] MEDS ORDERED: LOPRESSOR25 MG PO (10:06)
--- NOTE | 2017-07-26 10:34 | NUR ---
PT IS ALERT AND ORIENTED TO PERSON, PLACE, TIME AND SITUATION. MEMORY APPEARS INTACT. RESPIRATIONS EASY ON ROOM AIR. MOOD IS STABLE, ANXIOUS IN REGARD TO GOING HOME, EMOTIONAL SUPPORT PROVIDED AND PT GIVEN ATIVAN SCHEDULED ROUTINELY BY DR. DAIGLE. AFFECT IS BLUNTED. SPEECH IS WNL AND COHERENT, ABLE TO MAKE NEEDS KNOWN WITHOUT DIFFICULTY. PT DENIES HALLUCINATIONS, NO RESPONSE TO INTERNAL STIMULI NOTED. PT DENIES SI/HI. NO PARANOIA/DELUSIONS NOTED. MEDICATION COMPLIANT WITHOUT DIFFICULTY. PT IS INTERACTIVE WITH STAFF AND PEERS, PARTICIPATING IN GROUPS AND ACTIVITIES. AMBULATORY WITH STEADY GAIT, INDPENDENT WITH ADLS, CONTINENT OF BOWEL AND BLADDER. PT DISPLAYS GOOD APPETITE WITH ADEQUATE FLUID INTAKE. NO DISTRESS NTOED. Q15 MIN SAFETY CHECKS MAINTAINED, REFER TO [facility] FLOWSHEET FOR SPECIFIC MONITORING.
--- NOTE | 2017-07-26 13:19 | NUR ---
PT DISCHARGED TO HOME WITH SON FARZAD MIRELES VIA SON'S PRIVATE VEHICLE AT THIS TIME. ALL DISCHARGE INSTRUCTIONS AND MEDICATION INSTRUCTIONS REVIEWED WITH THE PT PRIOR TO DISCHARGE, SIMPLIFIED MEDICATION LIST TYPED OUT PER PT PER PT'S REQUEST. PT VERBALIZED UNDERSTANDING OF MEDICATION LIST AND THANKED STAFF FOR ASSISTANCE. ALL PERSONAL BELONGINGS WERE SENT WITH THE PT. LOCK BOX ITEMS RETURNED TO THE PT. PT'S HOME MEDICATIONS WERE RETRIEVED FROM PHARMACY AND RETURNED TO THE PT, PT SIGNED FOR THE MEDICATION. PT LEFT THE UNIT AT 1319 ESCORTED VIA WHEELCHAIR BY LUIS ANGEL RN.
--- NOTE | 2017-07-26 13:21 | NUR ---
Exercise/Reminiscing This is a wonderful group for patients to stay active since they sit or lay most of the day. It also helps with memory, thinking, concentracing,focusing and socialization Patient did attend group as well as participate. patient joined in during exercising and shared memories of her children and baking. She also encouraged another patient by asking questions about baking
--- NOTE | 2017-07-26 19:53 | NUR ---
TERRANEC SCHEDULED FOLLOWUP APPOINTMENTS WITH [facility] ON AT 10:30ANM AND dR. CONSUELO NOEL. 27 10AM.
--- NOTE | 2017-07-26 19:54 | NUR ---
SW REVIEWED DISCHARGE PAPERWORJ WITH PT AND SHE RECEIVED COPY. PT WAS DISCHARGED HOME WITH TRANSPORTAIO BY SON.
== END 2017-07-26 13:19 | disposition home or self-care (01) | DRG 885 ==
LOC: ED 20:27 → EDHOLD 22:23 → 3N 23:08
PROVIDERS: Emergency Medicine Emergency Medical Services; Physician Assistant; ADMIT Psychiatry & Neurology Psychiatry
DX: F25.0 Schizoaffective disorder, bipolar type (principal); I10 Essential (primary) hypertension; F41.9 Anxiety disorder, unspecified; R10.13 Epigastric pain; M54.6 Pain in thoracic spine; E78.5 Hyperlipidemia, unspecified; E55.9 Vitamin D deficiency, unspecified; E66.09 Other obesity due to excess calories; Z88.0 Allergy status to penicillin; Z88.2 Allergy status to sulfonamides; Z88.8 Allergy status to other drugs, medicaments and biological substances; Z79.899 Other long term (current) drug therapy; Z88.6 Allergy status to analgesic agent; Z83.6 Family history of other diseases of the respiratory system

== ENCOUNTER 2018-07-19 19:19 | Inpatient (IN) | payer MEDICARE ==
[~2018-07-19] VITALS: Ht 162.5 cm; Wt 81.3 kg
--- NOTE | ~2018-07-19 | EKG ---
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
--- NOTE | ~2018-07-19 | EKG ---
[place], [place] ELECTROCARDIOGRAM REPORT NAME: SUKHWINDER MIRELES UNIT #: [id number] ROOM: 407 DOCTOR: GILLES DRAFT REPORT BIRTHDATE: [birth year] [facility] Test Date: 2018-07-19 Test Time: 23:07:58 Pat Name: SUKHWINDER MIRELES Department: Room: 407 Gender: F Put In Beat Adjuster: MAR : 1950 Requested By: SAW WOODSON Order Number: [id number] Reading MD: Measurements Intervals [place] Rate: 63 P: 17 VT: 164 QRS: -14 QRSD: 81 T: 41 QT: 431 QTc: 442 Interpretive Statements Sinus rhythm Abnormal R-wave progression, early transition Inferior infarct, old No previous ECG available for comparison CM:EKGRPT:ELECTROCARDIOGRAM REPORT 06 09 SAW ABREU DRAFT REPORT SAW WOODSON DO
--- NOTE | ~2018-07-19 | EKG ---
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
[~2018-07-19 19:19] MED LIST changes: +ATARAX,VISTARIL50 MG PO; +ATORVASTATIN CA20 M1 PO; +LEXAPRO20 MG PO; +LOPRESSOR25 MG PO; +LORAZEPAM0.5 MG PO; +MIRTAZAPINE15 M2 PO; +TIZANIDINE HCL2 MG PO; +VRAYLAR3 MG PO; +Vitamin D PO
[2018-07-19 19:20] VITALS: BP 157/91
[2018-07-19 19:37] LABS: BASO % 0.6 % (0.0-1.0); EOS # 0.1 10*3/uL (0.0-0.4); EOS % 1.2 % (1.0-4.0); HEMATOCRIT 35.4 % (37.0-47.0); HEMOGLOBIN 12.1 g/dl (12.0-16.0); LYMPH # 1.8 10*3/uL (1.3-4.4); LYMPH % 27.5 % (27.0-41.0); MEAN CELL VOLUME 92.9 fl (81.0-99.0); MEAN CORPUSCULAR HGB 31.8 pg (27.0-31.0); MEAN CORPUSCULAR HGB CONC 34.2 g/dl (33.0-37.0); MEAN PLATELET VOLUME 9.4 fl (9.6-12.3); MONO # 0.5 10*3/uL (0.1-1.0); NEUT # 4.2 10*3/uL (2.3-7.9); NEUT % 62.5 % (47.0-73.0); PLATELET COUNT AUTOMATED 259 10*3/uL (130-400); RED BLOOD COUNT 3.81 10*6/uL (4.10-5.10); RED CELL DISTRI WIDTH 11.9 % (0-14.5); WHITE BLOOD COUNT 6.7 10*3/uL (4.8-10.8)
[2018-07-19 19:48] LABS: ACT PARTIAL THROMBO TIME 20.2 SECONDS (20.8-31.5)
[2018-07-19 19:55] LABS: ALBUMIN 3.8 gm/dl (3.1-4.5); ALKALINE PHOSPHATASE 65 U/L (45-117); BUN 6 mg/dl (7-24); CHLORIDE 105 mmol/L (98-107); CREATININE 0.84 mg/dL (0.55-1.02); POTASSIUM 3.3 mmol/L (3.5-5.1); SGOT/AST 26 IU/L (3-35); SGPT/ALT 53 U/L (12-78); SODIUM 141 mmol/L (136-145); TOTAL PROTEIN 7.3 gm/dL (6.4-8.2)
[2018-07-19 19:57] VITALS: BP 136/82
[2018-07-19 20:01] LABS: TROPONIN I < 0.015 ng/ml (<0.045)
[2018-07-19 21:00] VITALS: BP 136/62; BP 136/64
[2018-07-19 21:01] VITALS: BP 119/87
[2018-07-19] MEDS ORDERED: MIRTAZAPINE30 M1 PO (21:34)
[2018-07-19] MEDS ORDERED: CYCLOBENZAPRINE10 MG PO (21:36)
[2018-07-19] MEDS ORDERED: ATIVAN1 MG PO (21:38)
[2018-07-19] MEDS ORDERED: LOSARTAN POTASS50 M1 PO (21:38)
[2018-07-19] MEDS ORDERED: Zofran4 MG SL (21:40)
[2018-07-19] MEDS ORDERED: SEROQUEL25 MG PO (21:41)
[2018-07-19] MEDS ORDERED: LEXAPRO10 MG PO (21:42)
[2018-07-19] MEDS ORDERED: RANITIDINE HCL150 M1 PO (23:44)
[2018-07-19] MEDS ORDERED: CEPHALEXIN250 MG PO (23:49)
[2018-07-20] VITALS: BP 143/86
[2018-07-20 01:40] LABS: BASO % 0.5 % (0.0-1.0); EOS # 0.2 10*3/uL (0.0-0.4); EOS % 2.6 % (1.0-4.0); HEMOGLOBIN 11.2 g/dl (12.0-16.0); LYMPH # 2.3 10*3/uL (1.3-4.4); LYMPH % 36.1 % (27.0-41.0); MEAN CELL VOLUME 93.8 fl (81.0-99.0); MEAN CORPUSCULAR HGB 31.8 pg (27.0-31.0); MEAN CORPUSCULAR HGB CONC 33.9 g/dl (33.0-37.0); MEAN PLATELET VOLUME 8.9 fl (9.6-12.3); MONO # 0.6 10*3/uL (0.1-1.0); MONO % 9.1 % (3.0-9.0); NEUT # 3.2 10*3/uL (2.3-7.9); NEUT % 51.5 % (47.0-73.0); PLATELET COUNT AUTOMATED 211 10*3/uL (130-400); RED BLOOD COUNT 3.52 10*6/uL (4.10-5.10); RED CELL DISTRI WIDTH 11.9 % (0-14.5); WHITE BLOOD COUNT 6.3 10*3/uL (4.8-10.8)
[2018-07-20 01:54] LABS: BUN 7 mg/dl (7-24); CHLORIDE 106 mmol/L (98-107); CREATININE 0.91 mg/dL (0.55-1.02); POTASSIUM 2.9 mmol/L (3.5-5.1); SODIUM 145 mmol/L (136-145)
[2018-07-20 01:58] LABS: CHOLESTEROL 186 mg/dL (<200); FREE T4 0.95 ng/dl (0.76-1.46); HDL CHOLESTEROL 33 mg/dl (40-60); LDL CHOLESTEROL 97 mg/dL (9-159); PHOSPHOROUS 3.6 mg/dL (2.5-4.9); TRIGLYCERIDES 282 mg/dl (<150); VLDL CHOLESTEROL 56 mg/dL (6-40)
[2018-07-20 08:00] VITALS: BP 148/92
[2018-07-20 12:00] VITALS: BP 160/88
[2018-07-20] MEDS ORDERED: TRICOR48 MG PO (15:38)
[2018-07-20] MEDS ORDERED: METOCLOPRAM5 MG/1 ML PO (15:38)
[2018-07-20] MEDS ORDERED: VITAMIN D5000 UNIT PO (15:43)
[2018-07-20 16:40] VITALS: BP 153/84
== END 2018-07-20 18:10 | disposition home or self-care (01) | DRG 392 ==
LOC: ED 19:19 → EDHOLD 20:22 → 4E 21:14
PROVIDERS: Student in an Organized Health Care Education/Training Program
DX: K21.9 Gastro-esophageal reflux disease without esophagitis (principal); E78.5 Hyperlipidemia, unspecified; F41.9 Anxiety disorder, unspecified; M19.90 Unspecified osteoarthritis, unspecified site; E87.6 Hypokalemia; R73.9 Hyperglycemia, unspecified; E55.9 Vitamin D deficiency, unspecified; F31.9 Bipolar disorder, unspecified; F20.9 Schizophrenia, unspecified; K31.84 Gastroparesis; M54.5 Low back pain; G89.29 Other chronic pain; K57.30 Diverticulosis of large intestine without perforation or abscess without bleeding; E66.09 Other obesity due to excess calories; I25.10 Atherosclerotic heart disease of native coronary artery without angina pectoris; Z88.5 Allergy status to narcotic agent; Z88.0 Allergy status to penicillin; Z88.1 Allergy status to other antibiotic agents; Z88.8 Allergy status to other drugs, medicaments and biological substances; Z98.51 Tubal ligation status; Z83.3 Family history of diabetes mellitus; Z83.6 Family history of other diseases of the respiratory system; Z82.49 Family history of ischemic heart disease and other diseases of the circulatory system; Z68.30 Body mass index [BMI] 30.0-30.9, adult

== ENCOUNTER 2018-07-21 11:15 | Emergency (ER) | payer MEDICARE ==
[~2018-07-21] VITALS: Ht 162.5 cm; Wt 79.4 kg
--- NOTE | ~2018-07-21 | EKG ---
[place], [place] ELECTROCARDIOGRAM REPORT NAME: SUKHWINDER MIRELES UNIT #: [id number] ROOM: DOCTOR: EPIPHANY DRAFT REPORT BIRTHDATE: [birth year] [facility] Test Date: 2018-07-21 Test Time: 11:56:30 Pat Name: SUKHWINDER MIRELES Department: ER Room: 16 Gender: F Population Geneticist: EKG.[place] : 1950 Requested By: ADELINE SELF Order Number: [id number] Reading MD: Nilesh Lafleur MD Measurements Intervals [place] Rate: 82 P: 15 RI: 136 QRS: -16 QRSD: 79 T: 26 QT: 388 QTc: 453 Interpretive Statements Sinus rhythm Borderline left axis deviation Anteroseptal infarct, age indeterminate Electronically Signed On 07-22-2018 8:42:54 PDT by Nilesh Lafleur MD CM:EKGRPT:ELECTROCARDIOGRAM REPORT [id number] ADELINE CAMPOVERDE DRAFT REPORT ADELINE WELSH
[~2018-07-21 11:15] MED LIST changes: +CEPHALEXIN250 MG PO; +LEXAPRO10 MG PO; +LOSARTAN POTASS50 M1 PO; +METOCLOPRAM5 MG/1 ML PO; +MIRTAZAPINE30 M1 PO; +RANITIDINE HCL150 M1 PO; +SEROQUEL25 MG PO; +TRICOR48 MG PO; +VITAMIN D5000 UNIT PO; +Zofran4 MG SL
[2018-07-21 11:34] VITALS: BP 152/82
[2018-07-21 11:58] LABS: BILIRUBIN NEGATIVE (NEGATIVE); BLOOD 1+ (NEGATIVE); CLARITY CLEAR (CLEAR); COLOR YELLOW (YELLOW); GLUCOSE 1+ (NEGATIVE); KETONE NEGATIVE (NEGATIVE); LEUKO ESTERASE NEGATIVE (NEGATIVE); NITRITE NEGATIVE (NEGATIVE); SPECIFIC GRAVITY <= 1.005 (1.005-1.030); UROBILINOGEN 0.2 E.U./dl (0.2-1.0)
[2018-07-21 12:10] LABS: BACTERIA TRACE
[2018-07-21 12:49] LABS: BASO # 0.1 10*3/uL (0.0-0.1); BASO % 0.8 % (0.0-1.0); EOS % 0.6 % (1.0-4.0); HEMATOCRIT 38.8 % (37.0-47.0); LYMPH # 1.4 10*3/uL (1.3-4.4); LYMPH % 21.2 % (27.0-41.0); MEAN CELL VOLUME 92.4 fl (81.0-99.0); MEAN CORPUSCULAR HGB CONC 33.5 g/dl (33.0-37.0); MEAN PLATELET VOLUME 9.2 fl (9.6-12.3); MONO # 0.5 10*3/uL (0.1-1.0); MONO % 7.4 % (3.0-9.0); NEUT # 4.7 10*3/uL (2.3-7.9); NEUT % 69.7 % (47.0-73.0); PLATELET COUNT AUTOMATED 289 10*3/uL (130-400); RED CELL DISTRI WIDTH 11.8 % (0-14.5); WHITE BLOOD COUNT 6.7 10*3/uL (4.8-10.8)
[2018-07-21 12:56] LABS: ACT PARTIAL THROMBO TIME 20.3 SECONDS (20.8-31.5)
[2018-07-21 13:02] LABS: ALKALINE PHOSPHATASE 72 U/L (45-117); BUN 5 mg/dl (7-24); CHLORIDE 106 mmol/L (98-107); CREATININE 0.79 mg/dL (0.55-1.02); LIPASE 143 U/L (73-393); POTASSIUM 3.5 mmol/L (3.5-5.1); SGOT/AST 32 IU/L (3-35); SGPT/ALT 55 U/L (12-78); SODIUM 141 mmol/L (136-145); TOTAL PROTEIN 7.9 gm/dL (6.4-8.2)
[2018-07-21 13:07] LABS: TROPONIN I < 0.015 ng/ml (<0.045)
== END 2018-07-21 14:46 | disposition home or self-care (01) ==
LOC: ED 11:15
PROVIDERS: Physician Assistant
DX: R11.2 Nausea with vomiting, unspecified (principal); R10.9 Unspecified abdominal pain; Z88.0 Allergy status to penicillin; Z88.4 Allergy status to anesthetic agent; Z88.1 Allergy status to other antibiotic agents; Z88.2 Allergy status to sulfonamides; Z79.899 Other long term (current) drug therapy